=== PATIENT | female | born 1960 | race Caucasian/White ===

== ENCOUNTER 2019-05-19 00:32 | Observation (INO) ==
[2019-05-19] MEDS ORDERED: *HR* HYDROcodone/Acet 5/325 mg TABLET PO PRN (02:31)
[2019-05-19] MEDS ORDERED: Naloxone 0.4 MG/ML INJ IVP PRN (02:31)
--- NOTE | 2019-05-19 02:35 | Internal Med History&Physical ---
Date of Encounter: 05/19/19 Time of Encounter: 02:35 Internal Medicine - H&P: HPI Chief complaint: Abdominal pain History of present illness: Ms. Ferrara is a 58 year old female with past medical history of arthritis, cardiomyopathy, GERD, hypertension who [facility] with several days history of lower abdominal pain associated with constipation that was not re sponding to Dulcolax or even manual removal of stool that was attempted by her this morning. The patient denies fever, chills, chest pain paroxysmal worsening of lower extremity edema, orthopnea, paroxysmal nocturnal dyspnea or changes of urinary habits. The patient was evaluated by the ER staff and imaging studies revealed acute proximal sigmoid colon diverticulitis with a possible low large bowel obstruction with colon distal to the diverticular disease collapsed and colon proximal to the diverticular disease moderately dilated with air-fluid levels. Surgery was consulted by the ER physician [facility], they reviewed CAT scan of the abdomen and believe that there is no evidence of obstruction and requested the patient will be admitted to hospitalist service and they will see the patient in consult in a.m. Past Med Surg Social Fam HX - Past Medical History Medical history: arthritis, cardiomyopathy, GERD, hypertension, other Additional medical history: pacemaker/AICD Psychiatric history: no psych history - Past Surgical History Surgical History: other, AICD, pacemaker Additional surgical history: breast biopsy x2, pacemaker/AICD implant, colonoscopy, teeth extraction - Social History Smoking Status: Never smoker Smokeless Tobacco Status: No Alcohol use: none Drug use: none - Family History Mother Adopted: No Family Member Ethnicity: Non- Living Status: Still Living Hx Family Cardiac Disorders: No Hx Family Respiratory Disorders: No Hx Family Cancer: No Hx Family GI Disorders: No Hx Family Endocrine Disorder: No Hx Family Neuromuscular Disorders: No Hx Family Neurologic Disorders: No Hx Family HEENT Disorders: No Hx Family Autoimmune Disorders: No Father Living Status: Still Living Hx Family Endocrine Disorder: Yes (diabetes) Internal Medicine - H&P: Meds Lisinopril [Zestril] 20 mg PO DAILY 06/14/15 [History] Metoprolol Succinate 50 mg PO DAILY 06/14/15 [History] Spironolactone [Aldactone] 25 mg PO DAILY 06/14/15 [History] Allergy/AdvReac Type Severity Reaction Status Date / Time No Known Allergies Allergy Verified 05/18/19 18:46 All Systems PM: A 10-system review of systems was performed and is negative for pertinent findings except as documented above in the HPI. - Constitutional Vitals: Temp Pulse Resp BP Pulse Ox 97.5 F L 90 16 114/65 94 05/19/19 02:31 05/19/19 02:31 05/19/19 02:31 05/19/19 02:31 05/19/19 02:31 General appearance: Present: A&O X 3 Exam: ` - Head Head exam: Present: atraumatic, normocephalic - Neck Neck exam general surgery: Present: supple, trachea midline. Absent: lymphadenopathy - Respiratory Respiratory exam: Present: CTAB. Absent: accessory muscle use, rales, rhonchi, wheezes - Cardiovascular Cardiovascular exam: Present: RRR, +S1, +S2. Absent: diastolic murmur, gallop, rubs, systolic murmur - GI/Abdominal GI/Abdominal exam: Present: normal bowel sounds, soft, tenderness, no peritoneal signs. Absent: distended Internal Med - H&P Results - Labs CBC & Chem 7: 05/19/19 05:39 05/19/19 05:39 - Assessment and Plan (1) Diverticulitis Current Visit: No Status: Acute Assessment and plan: We will start the patient on empiric antibiotic with ciprofloxacin and metronidazole, continue IV hydration with isotonic saline, strict I&O's,. Surgery was consulted for further evaluation and management in a.m. (2) Constipation Current Visit: No Status: Acute Assessment and plan: Most likely secondary to large bowel obstruction as evidence on CT scan, surgery was consulted for further evaluation and management. Qualifiers: Qualified Code(s): K59.00 - Constipation, unspecified (3) CHF (congestive heart failure), NYHA class III Current Visit: No Status: Acute Assessment and plan: S/P pacemaker/AICD implant. We will resume home medication when po resumed. Qualifiers: Qualified Code(s): I50.9 - Heart failure, unspecified (4) Cholelithiasis Current Visit: Yes Status: Acute Assessment and plan: We will obtain liver U/s when stable. Qualifiers: Qualified Code(s): K80.20 - Calculus of gallbladder without cholecystitis without obstruction (5) LBBB (left bundle branch block) Current Visit: No Status: Acute (6) Nonischemic cardiomyopathy Current Visit: No Status: Chronic (7) DVT prophylaxis Current Visit: Yes Status: Acute Assessment and plan: We will place SCDs - Time Spent With Patient Total time spent is greater than 50% in coordination of care (as documented) at patient's floor/unit and/or counseling patient:
[2019-05-19] MEDS: 0.9 % Sodium Chloride 1,000 ML IVC SCH ×2 (05:11→15:19)
[2019-05-19] MEDS: MetroNIDAZOLE 500 MG/100 ML 500 MG/100 ML BAG IVPB SCH ×4 (05:12→23:50)
[2019-05-19] MEDS ORDERED: Pantoprazole 40 MG VIAL IVP SCH (06:00)
[2019-05-19 06:01] LABS: Basophils % 0.2 %; Hemoglobin 12.5 g/dL (11.5-15.4); Immature Granulocytes % 0.4 % (0-4); Lymphocytes # 1.4 K/mcL (0.6-4.6); Lymphocytes % 8.7 %; Mean Corpuscular HGB Conc 32.1 g/dL (31.6-35.5); Mean Corpuscular Hemoglobin 28.9 pg (28.0-33.3); Mean Corpuscular Volume 90.3 fL (83.0-100.0); Mean Platelet Volume 10.5 fL (9.4-12.4); Monocytes # 0.8 K/mcL (0.0-1.3); Monocytes % 4.7 %; Platelet Count 266 K/mcL (140-400); Red Blood Count 4.32 M/mcL (3.82-4.97); Red Cell Distribution Width 13.9 % (11.5-14.5); White Blood Count 16.2 K/mcL (4.3-11.1)
[2019-05-19 06:16] LABS: INR 1.2; Prothrombin Time 13.5 Seconds (9.4-12.1)
[2019-05-19 06:19] LABS: Activated Partial Thrombo Time 32.7 Seconds (26.0-36.0)
[2019-05-19] MEDS ORDERED: Chloraseptic Spray 177 ML BOTTLE MM PRN (06:36)
[2019-05-19 06:46] LABS: Alanine Aminotransferase 14 Units/L (7-52); Albumin 3.7 g/dL (3.5-5.7); Albumin/Globulin Ratio 1.3 (1.1-2.2); Alkaline Phosphatase 54 Units/L (34-104); Aspartate Amino Transferase 16 Units/L (13-39); BUN/Creatinine Ratio 24 (6-26); Bilirubin,Total 0.6 mg/dL (0.3-1.0); Blood Urea Nitrogen 20 mg/dL (6-20); Calcium 8.6 mg/dL (8.6-10.3); Carbon Dioxide 23 mEq/L (23-29); Chloride 102 mEq/L (98-107); Chol/HDL Ratio 3.3 (0-4.9); Cholesterol 144 mg/dL (< 200); Globulin 2.9 g/dL (2.4-3.5); Glucose 136 mg/dL (70-105); HDL Cholesterol 44 mg/dL (40-59); LDL Cholesterol,Calculated 77 mg/dL (0-99); Magnesium 2.5 mg/dL (1.6-2.6); Osmolality,Calculated 289 (280-300); Phosphorous 3.1 mg/dL (2.7-4.5); Potassium 4.1 mEq/L (3.5-5.1); Sodium 137 mEq/L (136-145); Total Protein 6.6 g/dL (6.4-8.9); Triglycerides 114 mg/dL (< 150); eGFR For African Americans > 60 (> 60); eGFR For Non-African Americans > 60 (> 60)
[2019-05-19 10:02] LABS: Bilirubin,Urine Small (Negative); Blood,Urine Negative (Negative); Clarity,Urine Clear (Clear); Color,Urine Dark Yellow (Yellow); Glucose,Urine (UA) Normal (Normal); Ketones,Urine 15 mg/dL (Negative); Leukocyte Esterase,Urine Negative (Negative); Nitrite,Urine Negative (Negative); PH,Urine 5.5 pH Units (5.0-8.0); Protein,Urine Trace mg/dL (Neg-Trace); Specific Gravity,Urine > 1.030 (1.010-1.025); Urobilinogen,Urine Normal (Normal)
--- NOTE | 2019-05-19 10:15 | AcuteCare Surgery Consult Note ---
Date of Encounter: 05/19/19 Time of Encounter: 07:30 Assessment and Plan (1) Diverticulitis Current Visit: No Status: Acute with possible obstruction. Pt is passing flatus. Will DC NGT but, maintain NPO except meds. Restart home meds for HTN and CHF. Pt acute condition is stable. Continue IV abx. (2) Colon obstruction Current Visit: Yes Status: Acute e to diverticulitis (3) HTN (hypertension) Current Visit: Yes Status: Acute resume home meds when NGT removed Qualifiers: Hypertension type: essential hypertension Qualified Code(s): I10 - Essential (primary) hypertension (4) CHF (congestive heart failure), NYHA class III Current Visit: No Status: Acute stable; resume home meds when NGT removed Qualifiers: Qualified Code(s): I50.9 - Heart failure, unspecified History of Present Illness Consult date: 05/19/19 Reason for consult: abdominal pain Requesting physician: Nazia Laura History of present illness: This 58 y/o pt presents to [facility] ED c/o severe abdominal pain. Pt reports pain is predominantly in midabdomen. Pain radiates to both sides. Pt reports pain has been present for days. She states that the intermittent low grade pain worsened to the point of intolerence yesterday.The pain became constant and severe. She states that the pain has subsided a lot since admission to the hospital. She feels a lot better. She is passing gas. Pt denies nausea and vomiting. She has been constipated for over a week and had poor results from an enema she took prior to presenting to ED at [facility]. Pt denies hematemesis or coffee ground emesis. Pt denies hematochezia or melena. Reports decreased appetite. Denies fever. Past Med Surg Social Fam HX - Past Medical History Medical history: cardiomyopathy, GERD, hypertension, other Additional medical history: pacemaker/AICD Psychiatric history: no psych history - Past Surgical History Surgical History: other, AICD, pacemaker Additional surgical history: breast biopsy x2, pacemaker/AICD implant, colonoscopy, teeth extraction - Social History Smoking Status: Never smoker Smokeless Tobacco Status: No Alcohol use: none Drug use: none - Family History Mother Adopted: No Family Member Ethnicity: Non- Living Status: Still Living Hx Family Cardiac Disorders: No Hx Family Respiratory Disorders: No Hx Family Cancer: No Hx Family GI Disorders: No Hx Family Endocrine Disorder: No Hx Family Neuromuscular Disorders: No Hx Family Neurologic Disorders: No Hx Family HEENT Disorders: No Hx Family Autoimmune Disorders: No Father Living Status: Still Living Hx Family Endocrine Disorder: Yes (diabetes) Medications and Allergies Lisinopril [Zestril] 20 mg PO DAILY 06/14/15 [History] Metoprolol Succinate 50 mg PO DAILY 06/14/15 [History] Spironolactone [Aldactone] 25 mg PO DAILY 06/14/15 [History] Allergy/AdvReac Type Severity Reaction Status Date / Time No Known Allergies Allergy Verified 05/18/19 18:46 Review of Systems All systems PM: The remainder of the systems were reviewed and are negative - Constitutional as per HPI, no anorexia, no chills, no fatigue, no fever(s), no malaise, no weakness - EENT Nose, mouth and throat: dry mouth, no dizziness, no nasal congestion, no nasal discharge, no sinus pain, no sinus pressure, no sore throat - Cardiovascular no chest pain, no diaphoresis, no dyspnea, no edema - Respiratory no cough, no dyspnea, no wheezing - Gastrointestinal abdominal pain, belching, bloating, constipation, cramping, no diarrhea, no hematemesis, no nausea, no vomiting - Musculoskeletal no back pain, no joint swelling, no limited range of motion, no neck pain - Integumentary dry skin, no pruritus, no rash, no wounds, no jaundice - Neurological no confusion, no dizziness, no focal weakness, no weakness - Psychiatric no anxiety, no depression - Hematologic/Lymphatic no easy bleeding, no easy bruising General Surgery Exam Initial Vital Signs Temp Pulse Resp BP Pulse Ox 97.5 F L 90 16 114/65 94 05/19/19 02:31 05/19/19 02:31 05/19/19 02:31 05/19/19 02:31 05/19/19 02:31 - General physical appearance well developed, well nourished, no distress, no pain, obese. negative: jaundice - Eyes PERRL, normal ocular movement. negative: icteric - ENT no congestion, dry mucosa. negative: nasal discharge - Neck no masses, trachea midline, no lymphadectomy, no venous distension - Respiratory normal respiratory effort, clear to auscultation - Cardiovascular Cardiovascular exam: Present: RRR. Absent: JVD - Abdomen Abdomen general surgery: Present: bowel sounds present, soft, distended (obese), tender Abdominal Tenderness: Present: diffusely - Genitourinary Present: normal external genitalia - Integumentary Integumentary general surgery: Present: warm and dry - Neurologic Present: CN 2-12 grossly intact, normal coordination - Musculoskeletal Present: normal posture - Psychiatric Psychiatric general surgery: Present: A&Ox3, appropriate Exam Initial Vital Signs Temp Pulse Resp BP Pulse Ox 97.5 F L 90 16 114/65 94 05/19/19 02:31 05/19/19 02:31 05/19/19 02:31 05/19/19 02:31 05/19/19 02:31 Results - Labs 05/19/19 05:39 05/19/19 05:39 Abnormal lab results WBC 16.2 K/mcL (4.3-11.1) H 05/19/19 05:39 Neutrophils # 14.0 K/mcL (1.6-8.9) H 05/19/19 05:39 PT 13.5 Seconds (9.4-12.1) H 05/19/19 05:39 Glucose 136 mg/dL (70-105) H 05/19/19 05:39 Ur Specific [place] > 1.030 (1.010-1.025) H 05/19/19 09:17 Urine Ketones 15 mg/dL (Negative) H 05/19/19 09:17 Urine Bilirubin Small (Negative) H 05/19/19 09:17 Diabetes panel 05/19/19 Range/Units 05:39 Sodium 137 (136-145) mEq/L Potassium 4.1 (3.5-5.1) mEq/L Chloride 102 (98-107) mEq/L Carbon Dioxide 23 (23-29) mEq/L BUN 20 (6-20) mg/dL Creatinine 0.84 (0.60-1.20) mg/dL Glucose 136 H (70-105) mg/dL Calcium 8.6 (8.6-10.3) mg/dL AST 16 (13-39) Units/L ALT 14 (7-52) Units/L Alkaline Phosphatase 54 (34-104) Units/L Albumin 3.7 (3.5-5.7) g/dL Triglycerides 114 (< 150) mg/dL HDL Cholesterol 44 (40-59) mg/dL Calcium panel 05/19/19 Range/Units 05:39 Calcium 8.6 (8.6-10.3) mg/dL Phosphorus 3.1 (2.7-4.5) mg/dL Albumin 3.7 (3.5-5.7) g/dL Pituitary panel 05/19/19 Range/Units 05:39 Sodium 137 (136-145) mEq/L Potassium 4.1 (3.5-5.1) mEq/L Chloride 102 (98-107) mEq/L Carbon Dioxide 23 (23-29) mEq/L BUN 20 (6-20) mg/dL Creatinine 0.84 (0.60-1.20) mg/dL Glucose 136 H (70-105) mg/dL Calcium 8.6 (8.6-10.3) mg/dL Adrenal panel 05/19/19 Range/Units 05:39 Sodium 137 (136-145) mEq/L Potassium 4.1 (3.5-5.1) mEq/L Chloride 102 (98-107) mEq/L Carbon Dioxide 23 (23-29) mEq/L BUN 20 (6-20) mg/dL Creatinine 0.84 (0.60-1.20) mg/dL Glucose 136 H (70-105) mg/dL Calcium 8.6 (8.6-10.3) mg/dL Total Bilirubin 0.6 (0.3-1.0) mg/dL AST 16 (13-39) Units/L ALT 14 (7-52) Units/L Alkaline Phosphatase 54 (34-104) Units/L Albumin 3.7 (3.5-5.7) g/dL All other labs normal. - Imaging CT scan - abdomen: image reviewed (Acute proximal sigmoid colon diverticulitis. No drainable fluid collection/abscess. The diverticular disease causes a low large bowel obstruction with colon distal to the diverticular disease collapsed and colon proximal to the diverticular disease moderately dilated with air-fluid levels.) CT scan - pelvis: image reviewed Consult Discharge Plan - Plan Referrals: Shyam Jaramillo DO [Primary Care Provider] -
[2019-05-19] MEDS: Acetaminophen 325 MG TABLET PO PRN ×2 (10:38→22:05)
--- NOTE | 2019-05-19 11:48 | Internal Med Progress Note ---
Hospitalist Progress Note - Encounter Date of Encounter: 05/19/19 Time of Encounter: 11:46 - Subjective Interval History: Abdominal pain has improved significantly since admission. Patient is now passing gas. She was evaluated by general surgery, and NG tube was pulled. Suspect patient will improve without need for surgery. - Exam Vitals: Temp Pulse Resp BP Pulse Ox 97.7 F 73 17 130/84 97 05/19/19 11:04 05/19/19 11:04 05/19/19 11:04 05/19/19 11:04 05/19/19 11:04 Exam: General: Ill-appearing and in no acute distress HEENT: No erythema of posterior pharynx. No exudates. Lymphatics: No mandibular or cervical lymphadenopathy Cardiovascular: RRR. No murmurs. No chest wall tenderness. Lungs: Clear to auscelltation bilaterally. Regular chest rise. Abdomen: Very mild LLQ tenderness. No rebound or gaurding. Nl bowel sounds. Extremities: No edema. 2+ pulses radial and pedal pulses Skin: No rahses, abrasions, or contusions. Nl cap refill. Psych: Nl attention. A&Ox3 Neuro: multiple drum sander helper II-XII intact. 5/5 strength. Sensation to light touch and pinprick intact. - Assessment and Plan (1) Diverticulitis Current Visit: No Status: Acute Assessment and Plan: Patient with history of diverticulosis presents with several days of abdominal pain and constipation and found to have evidence of acute diverticulitis on CT imaging on admission with possible large bowel obstructive process. -Patient in considerable amount of distress on admission, however, symptoms have since subsided and patient is now passing gas -Still no bowel movement -Nausea has resolved an NG tube has been removed -Gen. surgery evaluated patient. Recommend keeping nothing by mouth but low concerned that she will need surgical management PLAN: - Continue ciprofloxacin and Flagyl IV - daily CBC to transient improvement - Nothing by mouth until patient has a bowel movement - May need to try laxatives if no bowel movement by tomorrow - Pain control (2) Constipation Current Visit: No Status: Acute Assessment and Plan: See above (3) CHF (congestive heart failure), NYHA class III Current Visit: No Status: Acute Assessment and Plan: We will continue patient's home medications DVT Prophylaxis: Lovenox - Time Spent with Patient Total time spent is greater than 50% in coordination of care (as documented) at patient's floor/unit and/or counseling patient: Greater than 35 minutes Plan of Care Discussed with: patient Internal Medicine: Result - Labs CBC & Chem 7: 05/19/19 05:39 05/19/19 05:39 Labs: Short CBC 05/19/19 Range/Units 05:39 WBC 16.2 H (4.3-11.1) K/mcL Hgb 12.5 (11.5-15.4) g/dL Hct 39.0 (35.3-44.9) % Plt Count 266 (140-400) K/mcL Neutrophils # 14.0 H (1.6-8.9) K/mcL BMP 05/19/19 05:39 Sodium 137 Potassium 4.1 Chloride 102 Carbon Dioxide 23 BUN 20 Creatinine 0.84 Glucose 136 H Calcium 8.6 Liver Function 05/19/19 Range/Units 05:39 Total Bilirubin 0.6 (0.3-1.0) mg/dL AST 16 (13-39) Units/L ALT 14 (7-52) Units/L Alkaline Phosphatase 54 (34-104) Units/L Albumin 3.7 (3.5-5.7) g/dL Urine 05/19/19 Range/Units 09:17 Urine Color Dark Yellow (Yellow) Urine Clarity Clear (Clear) Urine pH 5.5 (5.0-8.0) pH Units Ur Specific [place] > 1.030 H (1.010-1.025) Urine Protein Trace (Neg-Trace) mg/dL Urine Glucose (UA) Normal (Normal) mg/dL - ABG Interpretation ABG results: PT/INR, D-dimer PT 13.5 Seconds (9.4-12.1) H 05/19/19 05:39 Consult Discharge Plan - Plan Referrals: Shyam Jaramillo, [Primary Care Provider] - (2) Constipation Qualifiers: Qualified Code(s): K59.00 - Constipation, unspecified (3) CHF (congestive heart failure), NYHA class III Qualifiers: Qualified Code(s): I50.9 - Heart failure, unspecified
[2019-05-20] MEDS: MetroNIDAZOLE 500 MG/100 ML 500 MG/100 ML BAG IVPB SCH ×2 (05:32→11:55)
[2019-05-20] MEDS ORDERED: *HR* Enoxaparin 40 MG/0.4 ML SYRINGE SQ SCH (06:00)
[2019-05-20] MEDS ORDERED: Lisinopril 20 MG TABLET PO SCH (09:00)
[2019-05-20] MEDS ORDERED: Spironolactone 25 MG TABLET PO SCH (09:00)
[2019-05-20] MEDS ORDERED: Metoprolol XL (24 HR) Succ 50 MG TAB.ER.24H PO SCH (09:00)
--- NOTE | 2019-05-20 14:41 | Discharge Summary ---
Date of Encounter: 05/20/19 Time of Encounter: 14:38 - Discharge Diagnosis (1) Diverticulitis Priority: Primary Status: Acute (2) Constipation Priority: Secondary Status: Acute Qualifiers: Qualified Code(s): K59.00 - Constipation, unspecified (3) CHF (congestive heart failure), NYHA class III Priority: Secondary Status: Acute Qualifiers: Qualified Code(s): I50.9 - Heart failure, unspecified Hospital course: Ms. Ferrara is a 58 year old female - Time Spent with Patient Total time spent providing and/or coordinating discharge services: - Discharge Medications Prescriptions: New Ciprofloxacin [Cipro] 500 mg PO BID #16 tablet metroNIDAZOLE [Flagyl] 500 mg PO TID #24 tablet Polyethylene Glycol 3350 [MiraLAX] 17 gm PO DAILY #60 powd.pack Continued Spironolactone [Aldactone] 25 mg PO DAILY Cholecalciferol (D-3) [Vitamin D] 1,000 unit PO DAILY Metoprolol Succinate [Toprol Xl] 50 mg PO DAILY Lisinopril [Zestril] 20 mg PO DAILY Ergocalciferol (VITAMIN D2) [Vitamin D2] 50,000 unit PO SA Home Medications: Spironolactone [Aldactone] 25 mg PO DAILY 06/14/15 [History] Cholecalciferol (D-3) [Vitamin D] 1,000 unit PO DAILY 05/19/19 [History] Ergocalciferol (VITAMIN D2) [Vitamin D2] 50,000 unit PO SA 05/19/19 [History] Lisinopril [Zestril] 20 mg PO DAILY 05/19/19 [History] Metoprolol Succinate [Toprol Xl] 50 mg PO DAILY 05/19/19 [History] Ciprofloxacin [Cipro] 500 mg PO BID #16 tablet 05/20/19 [Rx] Polyethylene Glycol 3350 [MiraLAX] 17 gm PO DAILY #60 powd.pack 05/20/19 [Rx] metroNIDAZOLE [Flagyl] 500 mg PO TID #24 tablet 05/20/19 [Rx] Allergies/Adverse Reactions: Allergy/AdvReac Type Severity Reaction Status Date / Time No Known Allergies Allergy Verified 05/19/19 21:52 Date of admission: 05/19/19 02:13 Primary care physician: Shyam Jaramillo DO Consults: 05/19/19 06:02 Consult to Surgery [CONS] Routine Consulting Provider: Acute Care Surgery Reason for Consult: Large bowel obstruction with multiple air-fluid level, surgery was consulted by ER [facility] at [facility] and they agreed to see the patient in consult and a.m. Time Notified: 06:04 Call Completed: Yes - Constitutional Vitals: Temp Pulse Resp BP Pulse Ox 98.0 F 76 17 120/72 95 05/20/19 09:58 05/20/19 09:58 05/20/19 09:58 05/20/19 09:58 05/20/19 09:58 General appearance: Present: A&O X 3 Exam: General: Ill-appearing and in no acute distress HEENT: No erythema of posterior pharynx. No exudates. Lymphatics: No mandibular or cervical lymphadenopathy Cardiovascular: RRR. No murmurs. No chest wall tenderness. Lungs: Clear to auscelltation bilaterally. Regular chest rise. Abdomen: Very mild LLQ tenderness. No rebound or gaurding. Nl bowel sounds. Extremities: No edema. 2+ pulses radial and pedal pulses Skin: No rahses, abrasions, or contusions. Nl cap refill. Psych: Nl attention. A&Ox3 Neuro: plastics process hand II-XII intact. 5/5 strength. Sensation to light touch and pinprick intact. - Patient Status Disposition: Home, Self-Care Condition: Good Functional capacity at discharge: independent ambulation Overall status at discharge: patient is back to baseline - Discharge Instructions Instructions: Diverticulitis (DC), Chronic Hypertension (DC), Bowel Obstruction (DC) Follow Up With: Shyam Jaramillo DO [Primary Care Provider] - 05/25/19 11:30 am - Diet and Activity Diet: advance to your usual diet
[2019-05-20 14:58] VITALS: BP 110/70
[2019-05-20] MEDS ORDERED: metroNIDAZOLE 500 MG TABLET PO SCH (15:00)
--- NOTE | 2019-05-20 15:14 | AcuteCareSurgery Progress Note ---
<Gin Howe - Last Filed: 05/20/19 15:08> Date of Encounter: 05/20/19 Time of Encounter: 07:30 - Assessment and Plan (1) Diverticulitis Status: Acute PT with acute diverticulitis with concern for obstruction (see details below). NG d/c'd 05/19/2019. Pt reports passing flatus, but denies BM. At time of original assessment (0730 this am), she was recommended to start clear liquid diet with a dose of MiraLAX. Surgery would cautiously observe for bowel function. If she has any increased discomfort or nausea/vomiting, we would need to pursue more aggressive treatments. Of note, upon chart review at approximately 1445 she is noted to have been advanced to a regular diet and discharged per the primary team. This DEHYDRATOR OPERATOR did notify 3A that the patient would at minimum need a follow-up with surgery and if she has any return of her previous symptoms she should immediately return to the hospital. CT/CT abd pelvis w iv no oral IMPRESSION: Acute proximal sigmoid colon diverticulitis. No drainable fluid collection/abscess. The diverticular disease causes a low large bowel obstruction with colon distal to the diverticular disease collapsed and colon proximal to the diverticular disease moderately dilated with air-fluid levels. Cholelithiasis. There are several calcified gallstones. No pericholecystic fluid or fat stranding however the gallbladder wall may be thickened. If clinically indicated, follow-up gallbladder ultrasound may be helpful. Mild fibroid uterus. Subjective Patient reports: feels better, voiding w/o difficulty, flatus, no bowel movement, afebrile Narrative: Denies n/v. States abdominal pain is improved. Objective Vital Signs - Last 8 Hours Temp Pulse Resp BP Pulse Ox 05/20/19 14:55 98.3 F 78 16 110/70 95 05/20/19 09:58 98.0 F 76 17 120/72 95 Intake and Output 05/19/19 05/20/19 05/20/19 23:59 07:59 15:59 Intake Total 542 / 1942 958 / 1158 200 / 1158 Output Total 250 / 250 800 / 1250 450 / 1250 Balance 292 / 1692 158 / -92 -250 / -92 Intake: IV Fluids 542 / 1942 958 / 1158 200 / 1158 0.9 % Sodium Chloride 1,000 ML 242 / 1242 758 / 758 @ 125 mls/hr IVC .Q8H [facility] Rx#: [id number] Cipro Premix 400 MG/200 ML 400 200 / 400 200 / 200 mg In 200 ml @ 200 mls/hr IVPB Q12H [facility] Rx#:[id number] Flagyl Premix 500 MG/100 ML 500 100 / 300 200 / 200 mg In 100 ml @ 100 mls/hr IVPB Q6HR [facility] Rx#:[id number] Oral 0 / 0 0 / 0 0 / 0 Output: Urine 250 / 250 800 / 1250 450 / 1250 Other: Meal NPO npo Percent of Meal Consumed 0% 0% Stool Size Small Stool Consistency formed Stool Color Brown # Bowel Movements 1 Weight 124 kg Blood Glucose* 101 93 104 Patient Weight 05/20/19 23:59 Weight 124 kg - General physical appearance well nourished, no distress - ENT atraumatic, normocephalic - Neck Neck exam: trachea midline - Respiratory normal expansion, normal respiratory effort - Cardiovascular Cardiovascular exam: Present: RRR - Abdomen Abdomen: Present: bowel sounds present, soft, non tender - Integumentary no rash - Neurologic normal coordination, normal sensation - Musculoskeletal normal posture - Psychiatric oriented to time, oriented to person, oriented to place - Labs 05/19/19 05:39 05/19/19 05:39 Consult Discharge Plan - Plan Instructions: Diverticulitis (DC), Chronic Hypertension (DC), Bowel Obstruction (DC) Referrals: Aman Moore MD [Non-Partnered Physician] - 06/06/19 9:00 am Shyam Jaramillo DO [Primary Care Provider] - 05/25/19 11:30 am Prescriptions: Ciprofloxacin [Cipro] 500 mg PO BID #16 tablet metroNIDAZOLE [Flagyl] 500 mg PO TID #24 tablet Polyethylene Glycol 3350 [MiraLAX] 17 gm PO DAILY #60 powd.pack <Aman Moore - Last Filed: 05/20/19 15:41> Date of Encounter: 05/20/19 Objective Vital Signs - Last 8 Hours Temp Pulse Resp BP Pulse Ox 05/20/19 14:55 98.3 F 78 16 110/70 95 05/20/19 09:58 98.0 F 76 17 120/72 95 Intake and Output 05/19/19 05/20/19 05/20/19 23:59 07:59 15:59 Intake Total 542 / 1942 958 / 1158 200 / 1158 Output Total 250 / 250 800 / 1250 450 / 1250 Balance 292 / 1692 158 / -92 -250 / -92 Intake: IV Fluids 542 / 1942 958 / 1158 200 / 1158 0.9 % Sodium Chloride 1,000 ML 242 / 1242 758 / 758 @ 125 mls/hr IVC .Q8H [facility] Rx#: [id number] Cipro Premix 400 MG/200 ML 400 200 / 400 200 / 200 mg In 200 ml @ 200 mls/hr IVPB Q12H [facility] Rx#:[id number] Flagyl Premix 500 MG/100 ML 500 100 / 300 200 / 200 mg In 100 ml @ 100 mls/hr IVPB Q6HR [facility] Rx#:[id number] Oral 0 / 0 0 / 0 0 / 0 Output: Urine 250 / 250 800 / 1250 450 / 1250 Other: Meal NPO npo Percent of Meal Consumed 0% 0% Stool Size Small Stool Consistency formed Stool Color Brown # Bowel Movements 1 Weight 124 kg Blood Glucose* 101 93 104 Patient Weight 05/20/19 23:59 Weight 124 kg - Labs 05/19/19 05:39 05/19/19 05:39 - Attending Attestation I have personally seen and examined the patient. I have reviewed pertinent labs, imaging, progress notes, including this one. I have discussed the plan in thorough detail with the resident and nurse practitioner. I agree with the above assessment and plan and wish to add the following... 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 She will need follow up in 2 weeks with plans for a colonoscopy and BE or, should her symptoms recurr or she find that she is indeed obstructed, she should return sooner.
[2019-05-20] MEDS ORDERED: MetroNIDAZOLE 500 MG/100 ML 500 MG/100 ML BAG IVPB SCH (20:00)
== END 2019-05-20 15:24 | disposition home or self-care (01) ==
LOC: 3ANU
PROVIDERS: ADMIT Internal Medicine; ATTEND Internal Medicine Nephrology

== ENCOUNTER 2019-07-29 06:03 | Inpatient (IN) ==
[2019-07-29] MEDS ORDERED: CeFAZolin Syr 2,000MG/20 ML 2,000 MG/20 ML SYRINGE IVPB ONE (06:26)
[2019-07-29] MEDS ORDERED: MetroNIDAZOLE 500 MG/100 ML 500 MG/100 ML BAG IVPB ONE (06:29)
[2019-07-29] MEDS ORDERED: Ringers Solution, Lactated 1,000 ML IVC SCH (06:30)
[2019-07-29] MEDS ORDERED: Dexamethasone 4 MG/ML VIAL ONE ×2 (07:09→18:09)
[2019-07-29] MEDS ORDERED: Gabapentin 300 MG CAPSULE PO ONE (07:09)
[2019-07-29] MEDS ORDERED: *HR* Midazolam HCl 2 MG/2 ML VIAL ONE (07:09)
[2019-07-29] MEDS ORDERED: *HR* Rocuronium Bromide 50 MG/5 ML VIAL ONE ×3 (07:09→13:36)
[2019-07-29] MEDS ORDERED: Celecoxib 200 MG CAPSULE PO ONE (07:09)
[2019-07-29] MEDS ORDERED: Ondansetron 4 MG/2 ML VIAL ONE ×2 (07:09→15:23)
[2019-07-29] MEDS ORDERED: *HR* Propofol 200 MG/20 ML VIAL IVP ONE (07:09)
[2019-07-29] MEDS ORDERED: *HR* Succinylcholine 200 MG/10 ML VIAL IVP ONE (07:09)
[2019-07-29] MEDS ORDERED: *HR* FentaNYL (PF) 100 MCG/2 ML VIAL ONE ×3 (07:09→13:56)
[2019-07-29] MEDS ORDERED: Lidocaine -MPF 2% 2 ML VIAL ONE ×4 (07:09→15:29)
[2019-07-29] MEDS ORDERED: traMADol 50 MG TABLET PO ONE (07:09)
[2019-07-29] MEDS ORDERED: *HR* HYDROmorphone (PF) 1 MG/ML SYRINGE IVP PRN (07:41)
[2019-07-29] MEDS ORDERED: *HR* OxyCODONE Immed Rel 5 MG TABLET PO PRN (07:41)
[2019-07-29] MEDS ORDERED: Ondansetron 4 MG/2 ML VIAL IVP ONE (07:41)
[2019-07-29] MEDS ORDERED: EPHEDrine 50 MG/ML VIAL ONE ×2 (08:28→14:45)
[2019-07-29] MEDS ORDERED: *HR* PHENYLEPHRINE 1,000 MCG/10 ML SYRINGE IVP ONE ×2 (14:56→17:45)
[2019-07-29] MEDS ORDERED: Neostigmine Methylsulfate 3 MG/3 ML SYRINGE ONE (15:27)
[2019-07-29] MEDS ORDERED: Naloxone 0.4 MG/ML INJ IVP PRN (17:49)
[2019-07-29] MEDS ORDERED: *HR* HYDROmorphone 20 MG/20 ML PCA IVC PRN (17:49)
[2019-07-29] MEDS ORDERED: Ondansetron 4 MG/2 ML VIAL IVP PRN (18:00)
[2019-07-29] MEDS ORDERED: Morphine PCA 30 MG/ 30 ML 30 ML PCA.VIAL IVC PRN (18:41)
[2019-07-29] MEDS: Ringers Solution, Lactated 1,000 ML IVC SCH (20:26)
[2019-07-29] MEDS ORDERED: 0.9 % Sodium Chloride 1,000 ML IV ONE (22:40)
[2019-07-30] MEDS: Ringers Solution, Lactated 1,000 ML IVC SCH ×2 (05:51→14:59)
[2019-07-30] MEDS: Metoprolol XL (24 HR) Succ 50 MG TAB.ER.24H PO SCH (08:16)
[2019-07-30] MEDS: Spironolactone 25 MG TABLET PO SCH (08:16)
[2019-07-30] MEDS: Lisinopril 20 MG TABLET PO SCH (08:16)
[2019-07-30] MEDS: Pantoprazole 40 MG VIAL IVP SCH (10:46)
[2019-07-30 11:43] LABS: Calcium 8.3 mg/dL (8.6-10.3); Magnesium 1.7 mg/dL (1.6-2.6); Phosphorous 2.9 mg/dL (2.7-4.5); Potassium 4.6 mEq/L (3.5-5.1)
[2019-07-30] MEDS: D5% in 0.45% NACL w KCl 20 MEQ/1,000 ML MLS IVC SCH (14:58)
[2019-07-31] MEDS: Ringers Solution, Lactated 1,000 ML IVC SCH ×3 (00:06→20:51)
[2019-07-31] MEDS: D5% in 0.45% NACL w KCl 20 MEQ/1,000 ML MLS IVC SCH ×3 (01:00→21:16)
[2019-07-31 08:08] LABS: Basophils % 0.1 %; Hematocrit 31.6 % (35.3-44.9); Immature Granulocytes % 0.7 % (0-4); Lymphocytes # 1.4 K/mcL (0.6-4.6); Lymphocytes % 7.9 %; Mean Corpuscular HGB Conc 31.6 g/dL (31.6-35.5); Mean Corpuscular Hemoglobin 29.4 pg (28.0-33.3); Mean Corpuscular Volume 92.9 fL (83.0-100.0); Mean Platelet Volume 10.6 fL (9.4-12.4); Monocytes # 1.5 K/mcL (0.0-1.3); Neutrophils # 15.1 K/mcL (1.6-8.9); Platelet Count 189 K/mcL (140-400); Red Cell Distribution Width 14.6 % (11.5-14.5); Segmented Neutrophils % 83.3 %; White Blood Count 18.1 K/mcL (4.3-11.1)
[2019-07-31] MEDS: Spironolactone 25 MG TABLET PO SCH (08:21)
[2019-07-31] MEDS: Metoprolol XL (24 HR) Succ 50 MG TAB.ER.24H PO SCH (08:21)
[2019-07-31] MEDS: Lisinopril 20 MG TABLET PO SCH (08:21)
[2019-07-31] MEDS: Pantoprazole 40 MG VIAL IVP SCH (08:21)
[2019-07-31] MEDS: *HR* Enoxaparin 40 MG/0.4 ML SYRINGE SQ SCH (08:22)
[2019-07-31 08:29] LABS: Calcium 8.3 mg/dL (8.6-10.3); Potassium 4.3 mEq/L (3.5-5.1)
[2019-07-31] MEDS: Ketorolac 15 MG/ML VIAL IVP SCH ×4 (09:19→23:20)
[2019-07-31] MEDS: Acetaminophen IV 1,000 MG/100 ML INFUS..BTL IVPB SCH ×3 (11:51→23:21)
[2019-08-01] MEDS: Acetaminophen IV 1,000 MG/100 ML INFUS..BTL IVPB SCH (06:03)
[2019-08-01] MEDS: Ketorolac 15 MG/ML VIAL IVP SCH (06:03)
[2019-08-01] MEDS: *HR* Enoxaparin 40 MG/0.4 ML SYRINGE SQ SCH (06:04)
[2019-08-01] MEDS: Pantoprazole 40 MG VIAL IVP SCH (09:14)
[2019-08-01] MEDS: Lisinopril 20 MG TABLET PO SCH (09:14)
[2019-08-01] MEDS: Metoprolol XL (24 HR) Succ 50 MG TAB.ER.24H PO SCH (09:14)
[2019-08-01] MEDS: Spironolactone 25 MG TABLET PO SCH (09:14)
[2019-08-01] MEDS ORDERED: *HR* OxyCODONE/APAP 5/325 TABLET PO PRN (10:34)
[2019-08-01 11:50] LABS: Basophils % 0.2 %; Eosinophils # 0.1 K/mcL (0.0-0.6); Eosinophils % 0.6 %; Hematocrit 32.7 % (35.3-44.9); Hemoglobin 10.4 g/dL (11.5-15.4); Immature Granulocytes % 0.5 % (0-4); Lymphocytes # 1.7 K/mcL (0.6-4.6); Lymphocytes % 10.5 %; Mean Corpuscular HGB Conc 31.8 g/dL (31.6-35.5); Mean Corpuscular Volume 94.2 fL (83.0-100.0); Mean Platelet Volume 10.5 fL (9.4-12.4); Monocytes # 1.1 K/mcL (0.0-1.3); Monocytes % 7.2 %; Neutrophils # 12.7 K/mcL (1.6-8.9); Platelet Count 201 K/mcL (140-400); Red Blood Count 3.47 M/mcL (3.82-4.97); Red Cell Distribution Width 14.3 % (11.5-14.5); White Blood Count 15.7 K/mcL (4.3-11.1)
[2019-08-01] MEDS: Ibuprofen 800 MG TABLET PO SCH ×2 (12:16→16:50)
[2019-08-01 12:21] LABS: BUN/Creatinine Ratio 19 (6-26); Blood Urea Nitrogen 15 mg/dL (6-20); Calcium 8.6 mg/dL (8.6-10.3); Carbon Dioxide 24 mEq/L (23-29); Chloride 107 mEq/L (98-107); Glucose 108 mg/dL (70-105); Osmolality,Calculated 283 (280-300); Phosphorous 2.3 mg/dL (2.7-4.5); Potassium 4.7 mEq/L (3.5-5.1); Sodium 136 mEq/L (136-145); eGFR For African Americans > 60 (> 60); eGFR For Non-African Americans > 60 (> 60)
[2019-08-02] MEDS: Ibuprofen 800 MG TABLET PO SCH ×2 (00:02→09:24)
[2019-08-02] MEDS: *HR* Enoxaparin 40 MG/0.4 ML SYRINGE SQ SCH (06:46)
[2019-08-02] MEDS: Pantoprazole 40 MG VIAL IVP SCH (09:24)
[2019-08-02] MEDS: Metoprolol XL (24 HR) Succ 50 MG TAB.ER.24H PO SCH (09:24)
[2019-08-02] MEDS: Lisinopril 20 MG TABLET PO SCH (09:24)
[2019-08-02] MEDS: Spironolactone 25 MG TABLET PO SCH (09:24)
[2019-08-02 11:00] VITALS: BP 110/72
== END 2019-08-02 12:03 | disposition home or self-care (01) | DRG 329 ==
LOC: SAMDAY 06:03 → 3ANU 07:58
PROVIDERS: ADMIT Surgery; ATTEND Surgery